=== PATIENT | male | born 1990 | race Caucasian/White ===

== ENCOUNTER 2020-04-22 11:14 | Emergency (ER) | payer SELFPAY | END 2020-04-22 11:45 | disposition home or self-care (01) | LOC: BURERS 11:14 | DX: S01.01XD Laceration without foreign body of scalp, subsequent encounter (principal); S41.111D Laceration without foreign body of right upper arm, subsequent encounter; L03.113 Cellulitis of right upper limb; V89.2XXD Person injured in unspecified motor-vehicle accident, traffic, subsequent encounter | CPT/HCPCS: 99282 ==

== ENCOUNTER 2020-06-20 17:36 | Emergency (ER) | payer SELFPAY ==
[2020-06-20] MEDS ORDERED: Lidocaine 2% PF 5 ML VIAL ONE (18:03)
== END 2020-06-20 18:35 | disposition home or self-care (01) ==
LOC: BURERS 17:36
DX: L03.012 Cellulitis of left finger (principal)
CPT/HCPCS: 10060

== ENCOUNTER 2022-12-17 14:42 | Emergency (ER) | payer SELFPAY ==
[2022-12-17] MEDS ORDERED: Tetracaine 0.5% PF 4 ML BOT ONE (14:57)
== END 2022-12-17 18:33 | disposition home or self-care (01) ==
LOC: BURERS 14:42
DX: S05.01XA Injury of conjunctiva and corneal abrasion without foreign body, right eye, initial encounter (principal); W22.8XXA Striking against or struck by other objects, initial encounter
CPT/HCPCS: 99283